=== PATIENT | male | born 2000 | race Caucasian/White ===

== ENCOUNTER 2020-10-13 20:38 | Emergency (ER) | payer OTHER ==
[~2020-10-13] VITALS: Ht 182.9 cm; Wt 59.4 kg
[2020-10-13 21:00] VITALS: BP 115/75
--- NOTE | 2020-10-13 21:03 | NUR ---
TO LOBBY A/W BED AMBULATORY
--- NOTE | 2020-10-13 21:30 | NUR ---
PATIENT PRESENTS TO ED WITH C/O MOUTH PAIN . DENIES N/V/D; SKIN IS PINK/WARM/DRY; AAOX4 WITH EVEN AND STEADY GAIT; LUNGS CLEAR BL; HR EVEN AND REGULAR; PT DENIES ANY FEVER, CP, SOB, OR COUGH AT THIS TIME VSS; PATIENT POSITIONED FOR COMFORT; HOB ELEVATED; BEDRAILS UP X2; BED DOWN. ER MD MADE AWARE OF PT STATUS.
[2020-10-13] MEDS ORDERED: DEXAMETHASONE 10 MG/ML VIAL IVP ONE (22:25)
[2020-10-13] MEDS ORDERED: AMPICILLIN/SULBACTAM 3 GM VIAL IM ONE (22:25)
--- NOTE | 2020-10-13 22:45 | NUR ---
IV ESTABLISHED. PT STATES PAIN INCREASES WITH SWALLOWING
--- NOTE | 2020-10-13 22:49 | NUR ---
TO CT VIA W/C
--- NOTE | 2020-10-13 23:05 | NUR ---
RETURNED FROM CT
[2020-10-14 01:03] LABS: BASOPHILS % (AUTO) 0.3 % (0.0-2.0); EOSINOPHILS % (AUTO) 0.2 % (0.0-4.0); HEMATOCRIT 41.1 % (36-52); HEMOGLOBIN 13.6 g/dL (12.0-18.0); LYMPHOCYTES # (AUTO) 1.6 K/uL (2.0-11.5); MEAN CORPUSCULAR HEMOGLOBIN 29 pg (27-31); MEAN CORPUSCULAR HGB CONC 33 g/dL (33-37); MEAN CORPUSCULAR VOLUME 87.3 fL (80-94); MONOCYTES # (AUTO) 0.6 K/uL (0.8-1.0); MONOCYTES % (AUTO) 4.2 % (1.7-9.3); NEUTROPHILS # (AUTO) 12.3 K/uL (1.8-7.7); NEUTROPHILS % (AUTO) 84.3 % (42.2-75.2); PLATELET COUNT (AUTO) 168 K/uL (140-450); RED BLOOD CELL COUNT(AUTO) 4.71 MIL/uL (4.20-6.10); RED CELL DISTRIBUTION WIDTH 12.9 % (11.6-13.7); WHITE BLOOD COUNT (AUTO) 14.6 K/uL (4.5-11.0)
[2020-10-14 01:20] LABS: ALBUMIN 4.4 g/dL (3.4-5.0); ANION GAP 12.8 (8-16); CARBON DIOXIDE 30.5 mmol/L (21-32); CREATININE 0.9 mg/dL (0.6-1.3); POTASSIUM 4.3 mmol/L (3.5-5.1); TOTAL BILIRUBIN 0.7 mg/dL (0.0-1.0)
--- NOTE | 2020-10-14 01:58 | NUR ---
SPOKE WITH KEIRA FROM [facility] TO GIVE CLINCAL INFORMATION. 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
--- NOTE | 2020-10-14 02:15 | NUR ---
resting in bed with eyes closed
--- NOTE | 2020-10-14 05:35 | NUR ---
Patient to be transferred to [facility]. Is being transferred due to HIGHER LEVEL OF CARE. Receiving facility has accepting physician and available space. ER physician has signed transfer form. Patient or responsible republican has agreed to transfer and signed form. Patient belongings inventoried and will be sent with patient. Copy of nursing notes, lab reports, EKG, Physicians Orders and X-rays to be sent with patient. Report called to MAXIM BOURNE at receiving facility. [facility] ambulance service has been called for transfer. ETA is 2 HOURS.
--- NOTE | 2020-10-14 09:11 | NUR ---
PT TRANSPORT HERE, MOTHER AT BEDSIDE. PT VITALS WITHIN NORMAL LIMITS, DOES NOT C/O OF PAIN AT THIS TIME.
--- NOTE | 2020-10-14 09:11 | NUR ---
[facility] at bedside.
[2020-10-14 09:13] VITALS: BP 120/63
== END 2020-10-14 09:11 | disposition short-term general hospital (02) ==
LOC: MED 20:38
DX: J02.9 Acute pharyngitis, unspecified (principal); Z20.822 Contact with and (suspected) exposure to COVID-19; J36 Peritonsillar abscess
CPT/HCPCS: 36415; 70491; 80053; 85025; 87426; 96372; 96374; 99291; J0295; J1100; Q9967

== ENCOUNTER 2023-08-12 20:14 | Emergency (ER) | payer OTHER ==
[~2023-08-12] VITALS: Ht 177.8 cm; Wt 74.8 kg
[2023-08-12 20:14] VITALS: BP 120/75; PULSE 102; RESP 11; TEMP 98.9; O2SAT 98
[2023-08-12 21:14] VITALS: O2SAT 98
[2023-08-12 21:18] LABS: BASOPHILS % (AUTO) 0.3 % (0.0-2.0); HEMATOCRIT 41.4 % (36-52); HEMOGLOBIN 13.9 g/dL (12.0-18.0); LYMPHOCYTES # (AUTO) 1.7 K/uL (2.0-11.5); MEAN CORPUSCULAR HEMOGLOBIN 28 pg (27-31); MEAN CORPUSCULAR HGB CONC 34 g/dL (33-37); MEAN CORPUSCULAR VOLUME 84.5 fL (80-94); MONOCYTES # (AUTO) 0.4 K/uL (0.8-1.0); MONOCYTES % (AUTO) 3.8 % (1.7-9.3); NEUTROPHILS # (AUTO) 9.1 K/uL (1.8-7.7); NEUTROPHILS % (AUTO) 80.9 % (42.2-75.2); PLATELET COUNT (AUTO) 156 K/uL (140-450); RED CELL DISTRIBUTION WIDTH 12.8 % (11.6-13.7); WHITE BLOOD COUNT (AUTO) 11.2 K/uL (4.8-10.8)
[2023-08-12 21:40] LABS: ALBUMIN 4.1 g/dL (3.4-5.0); ANION GAP 16.3 (8-16); CALCIUM 8.7 mg/dL (8.5-10.1); CARBON DIOXIDE 23.6 mmol/L (21-32); CREATININE 0.9 mg/dL (0.6-1.3); POTASSIUM 3.9 mmol/L (3.5-5.1); TOTAL BILIRUBIN 0.4 mg/dL (0.0-1.0); TOTAL PROTEIN, SERUM 7.3 g/dL (6.4-8.2)
[2023-08-12 23:23] LABS: APPEARANCE,URINE CLEAR (CLEAR); BILIRUBIN,URINE NEGATIVE (NEGATIVE); BLOOD, URINE TRACE-I (NEGATIVE); COLOR,URINE YELLOW (YELLOW); LEUKOCYTE ESTERASE ,URINE NEGATIVE (NEGATIVE); NITRITE, URINE NEGATIVE (NEGATIVE); PROTEIN,URINE TRACE (NEGATIVE); UGLUCOSE NEGATIVE (NEGATIVE)
[2023-08-12 23:40] LABS: BARBITURATE, URINE NEGATIVE ng/ml (NEG <=200); BENZODIAZEPINE, URINE NEGATIVE ng/mL (NEG <=200)
[2023-08-12 23:41] LABS: AMPHETAMINE, URINE NEGATIVE ng/ml (NEG <=1000); CANNABINOID, URINE NEGATIVE ng/mL (NEG <=50); COCAINE, URINE NEGATIVE ng/mL (NEG <=300); OPIATE, URINE NEGATIVE ng/mL (NEG <=2000); PHENCYCLIDINE SCREEN,URINE NEGATIVE ng/mL (NEG <=25)
[2023-08-12 23:42] LABS: BACTERIA,URINE >30 (MANY) /HPF (None Seen); MUCUS,URINE 1+ /LPF (None Seen); RBC,URINE 0-5 /HPF (0-5); SQUAMOUS EPITHELIAL CELL,UR 0-3 (FEW) /LPF (0-3 (FEW)); WBC,URINE 0-5 /HPF (0-5)
[2023-08-13 01:34] VITALS: O2SAT 98
[2023-08-13] MEDS: NACL 0.9% 1,000 ML IV ONE (02:15)
[2023-08-13] MEDS: PROPOFOL 200 MG/20 ML VIAL IV ONE (02:28)
[2023-08-13 02:40] VITALS: PULSE 78; RESP 11; O2SAT 100; O2SAT 99
[2023-08-13] MEDS ORDERED: CEPH-588 PO (03:14)
[2023-08-13 04:42] VITALS: BP 119/57; PULSE 75; RESP 15; O2SAT 98
== END 2023-08-13 05:14 | disposition home or self-care (01) ==
LOC: MED 20:14
DX: S43.015A Anterior dislocation of left humerus, initial encounter (principal); S43.014A Anterior dislocation of right humerus, initial encounter; N39.0 Urinary tract infection, site not specified; G40.89 Other seizures; Z79.899 Other long term (current) drug therapy; X58.XXXA Exposure to other specified factors, initial encounter; Y93.89 Activity, other specified; Y92.89 Other specified places as the place of occurrence of the external cause; Y99.8 Other external cause status
CPT/HCPCS: 23650; 36415; 70450; 71045; 72125; 73030; 80053; 80305; 81001; 85025; 93005; 96360; 99152; 99285; J2704; J7030